=== PATIENT | female | born 1950 | race Two or more races ===

== ENCOUNTER 2020-06-20 10:14 | Emergency (ER) | payer BC, MEDICAID ==
[~2020-06-20] VITALS: Ht 157.5 cm; Wt 55.0 kg
[2020-06-20] MEDS ORDERED: KETOROLAC 15MG/ML VIAL IM ONE (10:45)
[2020-06-20 10:59] VITALS: BP 160/73
== END 2020-06-20 11:30 | disposition home or self-care (01) ==
LOC: ER 10:14
DX: G89.29 Other chronic pain (principal); E11.9 Type 2 diabetes mellitus without complications; X50.1XXA Overexertion from prolonged static or awkward postures, initial encounter; Y93.89 Activity, other specified; Y92.89 Other specified places as the place of occurrence of the external cause
CPT/HCPCS: 96372; 99283; J1885

== ENCOUNTER → 2021-06-20 | Outpatient (CLI) | payer BC ==
[2021-06-20 09:26] LABS: BASOPHILS % 1.3 % (0.0-2.0); EOSINOPHILS % 3.3 % (0.0-5.0); HEMATOCRIT. 41.5 % (36.0-48.0); HEMOGLOBIN. 13.8 g/dL (12.0-16.0); LYMPHOCYTES % 49.6 % (20.0-50.0); MEAN CORPUSCULAR HEMOGLOBIN 29.1 pg (28.0-32.0); MEAN CORPUSCULAR VOLUME 87.6 fL (81.0-99.0); MEAN PLATELET VOLUME 8.2 fl (7.4-10.4); MONOCYTES % 5.2 % (2.0-8.0); NEUTROPHILS % 40.6 % (40.0-76.0); PLATELET 254 x1000/uL (130-400); RED BLOOD CELL COUNT 4.74 mill/uL (4.2-5.4); RED CELL DISTRIBUTION WIDTH 14.5 % (11.6-14.6)
[2021-06-20 09:29] LABS: CLARITY URINE CLEAR (CLEAR); COLOR URINE YELLOW (YELLOW); KETONES URINE NEGATIVE (NEGATIVE); LEUKOCYTE ESTERASE URINE NEGATIVE (NEGATIVE); NITRITE URINE NEGATIVE (NEGATIVE); OCCULT BLOOD URINE NEGATIVE (NEGATIVE); PROTEIN URINE 1+ (NEGATIVE); SPECIFIC GRAVITY URINE 1.006 (1.005-1.030); UROBILINOGEN URINE 0.2 E.U./dL (0.2-1.0)
[2021-06-20 09:53] LABS: CHLORIDE 104 mEq/L (98-107)
[2021-06-20 10:01] LABS: LDL CHOLESTEROL 110 mg/dL (5-100)
[2021-06-20 10:03] LABS: HDL CHOLESTEROL 32 mg/dL (40-59); TOTAL IRON BINDING CAPACITY 389 ug/dL (250-450)
[2021-06-20 10:04] LABS: CREATINE KINASE 90 IU/L (26-192)
[2021-06-20 10:05] LABS: T4 FREE 0.76 ng/dL (0.76-1.46)
[2021-06-20 10:14] LABS: FOLIC ACID (FOLATE) SERUM >20 ng/mL ng/mL (>5.38)
[2021-06-20 10:25] LABS: VITAMIN B12 SERUM 742 pg/mL (211-911)
[2021-06-20 14:01] LABS: CARCINO EMBRYONIC ANTIGEN 1.6 ng/ml; FERRITIN 73 ng/mL (10-291)
[2021-06-20 14:12] LABS: HEPATITIS B SURFACE ANTIGEN NEGATIVE
[2021-06-21 07:08] LABS: HIV SCREEN 4G Non Reactive (Non Reactive); VITAMIN D 25-OH 39.3 ng/mL (30.0-100.0)
== END | disposition home or self-care (01) ==
LOC: LAB 08:44
PROVIDERS: ATTEND Internal Medicine Geriatric Medicine
DX: Z00.01 Encounter for general adult medical examination with abnormal findings (principal); I10 Essential (primary) hypertension; E78.5 Hyperlipidemia, unspecified; E11.49 Type 2 diabetes mellitus with other diabetic neurological complication; N39.0 Urinary tract infection, site not specified
CPT/HCPCS: 36415; 80053; 80061; 81003; 82306; 82378; 82550; 82607; 82728; 82746; 83036; 83540; 83550; 84439; 84443; 84550; 85025; 86592; 86705; 86709; 86803; 87340; 87389

== ENCOUNTER → 2022-05-01 | Outpatient (CLI) | payer BC | END | disposition home or self-care (01) | LOC: RAD 12:17 | PROVIDERS: ATTEND Internal Medicine Geriatric Medicine | DX: M25.512 Pain in left shoulder (principal) | CPT/HCPCS: 73030 ==

== ENCOUNTER → 2022-05-08 | Outpatient (CLI) | payer BC | END | disposition home or self-care (01) | LOC: MRI 10:42 | PROVIDERS: ATTEND Internal Medicine Geriatric Medicine | DX: R51.9 Headache, unspecified (principal); M25.512 Pain in left shoulder; W19.XXXA Unspecified fall, initial encounter; Y93.89 Activity, other specified; Y92.89 Other specified places as the place of occurrence of the external cause; Y99.8 Other external cause status | CPT/HCPCS: 70544 ==